=== PATIENT | female | born 1990 | race American Indian/Alaskan Native ===

== ENCOUNTER 2016-10-02 23:30 | Emergency (ER) | payer MEDICAID ==
[2016-10-03 00:39] LABS: Basophils % (Auto) 0.6 % (0.0-1.8); Eosinophils % (Auto) 1.7 % (0.0-4.3); Hematocrit 31.2 % (30.3-42.9); Mean Corpuscular HGB Conc 32 % (30-34); Mean Corpuscular Hemoglobin 23 pg (28-32); Mean Corpuscular Volume 72 fl (79-97); Platelet Count 285 K/mm3 (140-440); Red Blood Count 4.36 M/mm3 (3.65-5.03); Red Cell Distribution Width 19.1 % (13.2-15.2); White Blood Count 8.7 K/mm3 (4.5-11.0)
[2016-10-03 00:56] LABS: Blood Urea Nitrogen 4 mg/dL (7-17); Calcium 9.2 mg/dL (8.4-10.2); Carbon Dioxide 23 mmol/L (22-30); Glucose 95 mg/dL (65-100)
[2016-10-03 00:57] LABS: Anion Gap 18 mmol/L; Chloride 100.8 mmol/L (98-107); Potassium 3.6 mmol/L (3.6-5.0); Sodium 138 mmol/L (137-145)
[2016-10-03 02:29] LABS: Bilirubin,Urine NEG (Negative); Blood,Urine NEG (Negative); Ketones,Urine NEG (Negative); Leukocyte Esterase,Urine MOD (Negative); Mucus,Urine FEW /HPF; Nitrite,Urine NEG (Negative); Protein,Urine <15 mg/dL mg/dL (Negative); Urobilinogen,Urine < 2.0 mg/dL (<2.0)
[2016-10-03 04:36] VITALS: BP 120/79
--- NOTE | 2016-10-06 11:29 | ED Elopement Review ---
ED Pt Elopement review - Results review Lab results: Laboratory Tests 10/03/16 10/03/16 10/03/16 00:19 00:19 00:19 WBC 8.7 RBC 4.36 Hgb 10.0 L Hct 31.2 MCV 72 L MCH 23 L MCHC 32 RDW 19.1 H Plt Count 285 Lymph % (Auto) 27.7 [place] % (Auto) 9.6 H Eos % (Auto) 1.7 Baso % (Auto) 0.6 Lymph # 2.4 [place] # 0.8 Eos # 0.1 Baso # 0.1 Seg Neutrophils % 60.4 Seg Neutrophils # 5.3 Sodium 138 Potassium 3.6 Chloride 100.8 Carbon Dioxide 23 Anion Gap 18 BUN 4 L Creatinine 0.5 L Estimated GFR > 60 BUN/Creatinine Ratio 8.00 Glucose 95 Calcium 9.2 Troponin T < 0.010 HCG, Quant 6860 H Urine Color Urine Turbidity Urine pH Ur Specific [place] Urine Protein Urine Glucose (UA) Urine Ketones Urine Blood Urine Nitrite Urine Bilirubin Urine Urobilinogen Ur Leukocyte Esterase Urine WBC (Auto) Urine RBC (Auto) U Epithel Cells (Auto) Calcium Oxalate Crystal Urine Mucus 10/03/16 00:36 WBC RBC Hgb Hct MCV MCH MCHC RDW Plt Count Lymph % (Auto) [place] % (Auto) Eos % (Auto) Baso % (Auto) Lymph # [place] # Eos # Baso # Seg Neutrophils % Seg Neutrophils # Sodium Potassium Chloride Carbon Dioxide Anion Gap BUN Creatinine Estimated GFR BUN/Creatinine Ratio Glucose Calcium Troponin T HCG, Quant Urine Color Yellow Urine Turbidity Slightly-cloudy Urine pH 6.0 Ur Specific [place] 1.015 Urine Protein <15 mg/dl Urine Glucose (UA) Neg Urine Ketones Neg Urine Blood Neg Urine Nitrite Neg Urine Bilirubin Neg Urine Urobilinogen < 2.0 Ur Leukocyte Esterase Mod Urine WBC (Auto) 2.0 Urine RBC (Auto) 3.0 U Epithel Cells (Auto) 13.0 Calcium Oxalate Crystal 2+ Urine Mucus Few - Call Back decision Pt Call Back Decision: No action required
== END 2016-10-03 03:35 | disposition left against medical advice (07) ==
LOC: ED 23:30
DX: O26.892 Other specified pregnancy related conditions, second trimester (principal); R42 Dizziness and giddiness; R07.9 Chest pain, unspecified; Z53.21 Procedure and treatment not carried out due to patient leaving prior to being seen by health care provider
CPT/HCPCS: 36415; 80048; 81001; 84484; 84702; 85025; 93005; 93010

== ENCOUNTER 2016-10-26 00:03 | Outpatient (CLI) | payer MEDICAID, OTHER ==
[2016-10-26 00:29] VITALS: BP 117/52
[2016-10-26] MEDS ORDERED: LACTATED RINGERS 1,000 ML IV ONE (00:41)
[2016-10-26] MEDS ORDERED: LACTATED RINGERS 500 ML IV ONE (00:42)
[2016-10-26 02:32] LABS: Bilirubin,Urine Negative (Negative); Blood,Urine Negative (Negative); Ketones,Urine Negative (Negative); Leukocyte Esterase,Urine Moderate (Negative); Nitrite,Urine Negative (Negative); Urobilinogen,Urine 0.2 mg/dL (<2.0)
== END 2016-10-26 02:45 | disposition home or self-care (01) ==
LOC: TRG 00:03
PROVIDERS: ATTEND Obstetrics & Gynecology
DX: O47.02 False labor before 37 completed weeks of gestation, second trimester (principal); Z3A.22 22 weeks gestation of pregnancy
CPT/HCPCS: 81001; 96360; 96361; J7120

== ENCOUNTER 2017-01-04 23:37 | Outpatient (CLI) | payer OTHER ==
[2017-01-05 00:07] VITALS: BP 133/80
[2017-01-05] MEDS ORDERED: LACTATED RINGERS 1,000 ML IV ONE (00:13)
[2017-01-05] MEDS ORDERED: BRETHINE SUB-Q ONE (00:37)
[2017-01-05 00:38] LABS: Bilirubin,Urine NEG (Negative); Blood,Urine NEG (Negative); Ketones,Urine NEG (Negative); Leukocyte Esterase,Urine NEG (Negative); Mucus,Urine FEW /HPF; Nitrite,Urine NEG (Negative); Urobilinogen,Urine < 2.0 mg/dL (<2.0)
[2017-01-05] MEDS ORDERED: BRETHINE SUB-Q SCH (02:00)
--- NOTE | 2017-01-05 08:01 | Event Note ---
Date: 01/05/17 26 year old female presented to L&D triage at 32 weeks, 3 days gestation complaining of contractions since yesterday. Patient stated contractions became more regular early this morning so she came in to make sure she wasn't in labor. Patient denied vaginal bleeding or leaking of fluid. She denied falls or abdominal trauma. Patient states baby moving well. Patient has a history of a late delivery (36 weeks) with a previous and she also has a history of one full term delivery. Patient had mild uterine contractions upon arrival. FFN, urinalysis were collected. IV hydration and Bre[place]ine SQ were given and contractions resolved. SVE closed and thick. FHR tracing reactive AGA. FFN was negative. Urinalysis showed no evidence of UTI. Patient was encouraged to drink more water, rest, and avoid IC. Patient was advised to follow up at OB office early this coming week. Discharge home order was given by Dr. León as patient as it was determined that patient was not in labor.
== END 2017-01-05 02:45 | disposition home or self-care (01) ==
LOC: TRG 23:37
PROVIDERS: ATTEND Obstetrics & Gynecology
DX: O62.9 Abnormality of forces of labor, unspecified (principal); O47.03 False labor before 37 completed weeks of gestation, third trimester; Z3A.32 32 weeks gestation of pregnancy
CPT/HCPCS: 36415; 59025; 81001; 82731; 96360; 96372; J3105; J7120

== ENCOUNTER 2017-02-10 11:55 | Outpatient (CLI) | payer OTHER ==
[2017-02-10 13:01] LABS: Hematocrit 29.1 % (30.3-42.9); Hemoglobin 8.9 gm/dl (10.1-14.3); Mean Corpuscular HGB Conc 31 % (30-34); Platelet Count 298 K/mm3 (140-440); Red Blood Count 4.17 M/mm3 (3.65-5.03); Red Cell Distribution Width 16.1 % (13.2-15.2); White Blood Count 10.4 K/mm3 (4.5-11.0)
[2017-02-10 13:03] LABS: Mean Corpuscular Hemoglobin 21 pg (28-32); Mean Corpuscular Volume 70 fl (79-97)
[2017-02-10 13:08] LABS: Bacteria,Urine 3+ /HPF (Negative); Bilirubin,Urine NEG (Negative); Blood,Urine NEG (Negative); Ketones,Urine NEG (Negative); Leukocyte Esterase,Urine NEG (Negative); Nitrite,Urine NEG (Negative); Protein,Urine <15 mg/dL mg/dL (Negative); Urobilinogen,Urine < 2.0 mg/dL (<2.0)
[2017-02-10 13:17] LABS: Alanine Aminotransferase 14 units/L (7-56); Albumin 3.3 g/dL (3.9-5); Albumin/Globulin Ratio 1.1 %; Alkaline Phosphatase 157 units/L (35-129); Anion Gap 19 mmol/L; BUN/Creatinine Ratio 8; Blood Urea Nitrogen 3 mg/dL (7-17); Calcium 8.3 mg/dL (8.4-10.2); Carbon Dioxide 19 mmol/L (22-30); Chloride 103.2 mmol/L (98-107); Glucose 81 mg/dL (65-100); Potassium 4.1 mmol/L (3.6-5.0); Sodium 137 mmol/L (137-145); Total Protein 6.2 g/dL (6.3-8.2)
[2017-02-10 13:30] VITALS: BP 117/63
--- NOTE | 2017-02-10 18:19 | Progress Note ---
Assessment and Plan A: at 37 weeks, 4 days gestation. False labor. Normal labs. P: Advised patient to follow up at [facility] tomorrow to recheck her BP. Advised pt. to rest at home in the interim. Advised pt. to perform daily movement counting. Advised patient of warning signs and signs of labor. Advised pt. to continue iron supplements. Pt. voiced understanding. Subjective - Subjective Date of service: 02/10/17 Principal diagnosis: at 37 weeks, 4 days gestation; contractions Interval history: 26 year old female presents to L&D triage at 37 weeks, 4 days gestation complaining of contractions and states she wants to know if she is in labor. Patient states contractions have been irregular. Patient denies leaking of fluid or vaginal bleeding. Patient reports active movement. Patient denies headache, swelling, abdominal pain, nausea or vomiting. Patient reports: movement normal, contractions, no loss of fluid, no vaginal bleeding Objective - Vital Signs Vital Signs: Vital Signs - 12hr 02/10/17 02/10/17 02/10/17 12:17 12:18 12:20 Temperature Pulse Rate 104 H 102 H 78 Respiratory Rate Blood Pressure 159/79 149/71 O2 Sat by Pulse 100 Oximetry 02/10/17 02/10/17 02/10/17 12:23 12:28 12:33 Temperature Pulse Rate 109 H 79 101 H Respiratory Rate Blood Pressure O2 Sat by Pulse 100 99 100 Oximetry 02/10/17 02/10/17 02/10/17 12:34 12:49 13:00 Temperature 98 F Pulse Rate 93 H 120 H Respiratory 16 Rate Blood Pressure 143/77 137/82 O2 Sat by Pulse Oximetry 02/10/17 02/10/17 02/10/17 13:03 13:17 13:32 Temperature Pulse Rate 90 86 85 Respiratory Rate Blood Pressure 127/61 117/59 117/63 O2 Sat by Pulse Oximetry - Exam Breasts: deferred Abdomen: Present: normal appearance, soft. Absent: distention, tenderness, guarding, rigidity Uterus: Present: normal, fundal height above umbilicus. Absent: bogginess, tenderness FHR: category 1 Uterine Contraction Monitor Mode: External Cervical Dilatation: 0 Cervical Effacement Percentage: 0 station: -3 Uterine Contraction Pattern: Irregular Uterine Contraction Intensity: Mild Extremities: normal - Labs Labs: Abnormal Labs 02/10/17 02/10/17 02/10/17 12:46 12:46 12:46 Hgb 8.9 L Hct 29.1 L MCV 70 L MCH 21 L RDW 16.1 H Carbon Dioxide 19 L BUN 3 L Creatinine 0.4 L Calcium 8.3 L Alkaline Phosphatase 157 H Total Protein 6.2 L Albumin 3.3 L U Epithel Cells (Auto) 23.0 H Laboratory Results - last 24 hr 02/10/17 02/10/17 02/10/17 12:46 12:46 12:46 WBC 10.4 RBC 4.17 Hgb 8.9 L Hct 29.1 L MCV 70 L MCH 21 L MCHC 31 RDW 16.1 H Plt Count 298 Sodium 137 Potassium 4.1 Chloride 103.2 Carbon Dioxide 19 L Anion Gap 19 BUN 3 L Creatinine 0.4 L Estimated GFR > 60 BUN/Creatinine Ratio 8 Glucose 81 Calcium 8.3 L Total Bilirubin 0.40 AST 27 ALT 14 Alkaline Phosphatase 157 H Total Protein 6.2 L Albumin 3.3 L Albumin/Globulin Ratio 1.1 Urine Color Yellow Urine Turbidity Clear Urine pH 7.0 Ur Specific [place] 1.012 Urine Protein <15 mg/dl Urine Glucose (UA) Neg Urine Ketones Neg Urine Blood Neg Urine Nitrite Neg Urine Bilirubin Neg Urine Urobilinogen < 2.0 Ur Leukocyte Esterase Neg Urine WBC (Auto) 3.0 Urine RBC (Auto) 2.0 U Epithel Cells (Auto) 23.0 H Urine Bacteria (Auto) 3+
== END 2017-02-10 14:00 | disposition home or self-care (01) ==
LOC: TRG 11:55
PROVIDERS: ATTEND Obstetrics & Gynecology
DX: O62.9 Abnormality of forces of labor, unspecified (principal); Z3A.37 37 weeks gestation of pregnancy
CPT/HCPCS: 36415; 59025; 80053; 81001; 85027

== ENCOUNTER 2018-07-29 10:41 | Emergency (ER) | payer OTHER ==
--- NOTE | 2018-07-29 11:15 | Emergency Department Report ---
ED Chest Pain HPI - General Chief Complaint: Chest Pain Stated Complaint: CHEST PAIN/COUGHING Time Seen by Provider: 07/29/18 11:03 Source: patient Mode of arrival: Ambulatory Limitations: No Limitations - History of Present Illness Initial Comments: Patient is a 28-year-old female presents to ED complaining of left sided chest pain this intermittent for a year but Worse yesterday. Patient states she wasn't doing anything when she felt the pain. Patient states the pain is localized to her chest that did not radiate anywhere else. Patient stated pain is intermittent, sharp in nature. MD Complaint: chest pain -: Gradual Pain Location: left chest Pain Radiation: none Severity: moderate Severity scale (0 -10): 7 Quality: aching - Related Data Home Medications Medication Instructions Recorded Confirmed Last Taken Ferrous Sulfate [Feosol] 325 mg PO TID 02/12/17 02/17/17 02/16/17 Vit-Fe Fumar-FA [ 1 tab PO QDAY 02/12/17 02/17/17 02/16/17 Vitamin] Valacyclovir HCl [valACYclovir] 1 tab PO QDAY 02/17/17 02/17/17 02/16/17 Previous Rx's Medication Instructions Recorded Last Taken Type Ibuprofen [Motrin] 800 mg PO Q8HR #30 tablet 07/29/18 Unknown Rx Allergies Allergy/AdvReac Type Severity Reaction Status Date / Time No Known Allergies Allergy Verified 05/03/14 13:13 Heart Score - HEART Score History: Slightly suspicious EKG: Normal Age: < 45 Risk factors: No known risk factors Troponin: < normal limit HEART Score: 0 ED Review of Systems ROS: Stated complaint: CHEST PAIN/COUGHING Other details as noted in HPI Comment: All other systems reviewed and negative ED Past Medical Hx - Past Medical History Previous Medical History?: Yes Hx Hypertension: Yes (PIH) Hx CVA: No Hx Heart Attack/AMI: No Hx Congestive Heart Failure: No Hx Diabetes: No Hx Deep Vein Thrombosis: No Hx Pulmonary Embolism: No Hx GERD: No Hx Liver Disease: No Hx Renal Disease: No Hx Sickle Cell Disease: No Hx Arthritis: No Hx Headaches / Migraines: No Hx Seizures: No Hx Kidney Stones: No Hx Psychiatric Treatment: No Hx Asthma: Yes (used inhaler 02/15/17) Hx COPD: No Hx Tuberculosis: No Hx Dementia: No Hx HIV: No - Surgical History Past Surgical History?: Yes Hx Coronary Stent: No Hx Open Heart Surgery: No Hx Pacemaker: No Hx Internal Defibrillator: No Hx Cholecystectomy: No Hx Appendectomy: No Hx Breast Surgery: No Additional Surgical History: d&c 2012 - Social History Smoking Status: Never Smoker Substance Use Type: None - Medications Home Medications: Home Medications Medication Instructions Recorded Confirmed Last Taken Type Ferrous Sulfate [Feosol] 325 mg PO TID 02/12/17 02/17/17 02/16/17 History Vit-Fe Fumar-FA [ 1 tab PO QDAY 02/12/17 02/17/17 02/16/17 History Vitamin] Valacyclovir HCl [valACYclovir] 1 tab PO QDAY 02/17/17 02/17/17 02/16/17 History Ibuprofen [Motrin] 800 mg PO Q8HR #30 tablet 07/29/18 Unknown Rx ED Physical Exam - General Limitations: No Limitations General appearance: alert, in no apparent distress - Head Head exam: Present: atraumatic, normocephalic - Eye Eye exam: Present: normal appearance - ENT ENT exam: Present: mucous membranes moist - Neck Neck exam: Present: normal inspection - Respiratory Respiratory exam: Present: normal lung sounds bilaterally. Absent: respiratory distress, wheezes, chest wall tenderness, accessory muscle use - Cardiovascular Cardiovascular Exam: Present: regular rate, normal rhythm. Absent: systolic murmur, diastolic murmur, rubs, gallop - GI/Abdominal GI/Abdominal exam: Present: soft, normal bowel sounds - Extremities Exam Extremities exam: Present: normal inspection - Back Exam Back exam: Present: normal inspection - Neurological Exam Neurological exam: Present: alert, oriented X3 - Psychiatric Psychiatric exam: Present: normal affect, normal mood - Skin Skin exam: Present: warm, dry, intact, normal color. Absent: rash ED Course Vital Signs 07/29/18 10:42 Temperature 98.6 F Pulse Rate 66 Respiratory 18 Rate Blood Pressure 115/72 O2 Sat by Pulse 100 Oximetry JANETT score - Janett Score Age > 65: (0) No Aspirin use within the Past 7 Days: (0) No 3 or more CAD Risk Factors: (0) No 2 or more Angina events in past 24 hrs: (0) No Known CAD with more than 50% Stenosis: (0) No Elevated Cardiac Markers: (0) No ST Deviation Greater than 0.5mm: (0) No JANETT Score: 0 ED Medical Decision Making - Lab Data Result diagrams: 07/29/18 11:18 07/29/18 11:18 - Radiology Data Radiology results: report reviewed, image reviewed Fluoro Time In Minutes: AP CHEST: HISTORY: chest pain AP view of the chest demonstrates a normal mediastinal and cardiac contour with clear lungs and normal bony and soft tissue structures. IMPRESSION: Unremarkable AP chest. Transcribed By: TTR Dictated By: JAMIE BENZ JR, MD Electronically Authenticated By: JAMIE BENZ JR, MD Signed Date/Time: 07/29/18 0199 - Medical Decision Making 28-year-old female presented with possible costochondritis Patient is acute distress. All lab within normal limits. Chest x-ray shows no acute findings. See report above Discussed findings with the patient. Discussed patient to follow up with primary care physician. Critical care attestation.: If time is entered above; I have spent that time in minutes in the direct care of this critically ill patient, excluding procedure time. ED Disposition Clinical Impression: Costochondral chest pain Disposition: DC-01 TO HOME OR SELFCARE Is pt being admited?: No Does the pt Need Aspirin: No Condition: Stable Instructions: Chest Pain (ED), Costochondritis (ED), Upper Respiratory Infection (ED) Additional Instructions: Make sure to follow up with the primary care physician as discussed. Take all your medications as you've been prescribed. If you have any worsening symptoms or develop new symptoms please return to ED immediately. Prescriptions: Ibuprofen [Motrin] 800 mg PO Q8HR #30 tablet Referrals: MARKELL QUAN MD [Primary Care Provider] - 3-5 Days Forms: Accompanied Note, Work/School Release Form(ED) Time of Disposition: 12:40
[2018-07-29 11:28] LABS: Basophils # (Auto) 0.1 K/mm3 (0.0-0.1); Eosinophils # (Auto) 0.2 K/mm3 (0.0-0.4); Eosinophils % (Auto) 2.9 % (0.0-4.3); Hemoglobin 10.3 gm/dl (10.1-14.3); Lymphocytes # (Auto) 1.7 K/mm3 (1.2-5.4); Lymphocytes % (Auto) 31.1 % (13.4-35.0); Mean Corpuscular HGB Conc 31 % (30-34); Mean Corpuscular Volume 73 fl (79-97); Monocytes # (Auto) 0.5 K/mm3 (0.0-0.8); Monocytes % (Auto) 9.1 % (0.0-7.3); Platelet Count 316 K/mm3 (140-440); Red Blood Count 4.52 M/mm3 (3.65-5.03); Red Cell Distribution Width 14.8 % (13.2-15.2)
[2018-07-29 11:51] LABS: BUN/Creatinine Ratio 8; Blood Urea Nitrogen 4 mg/dL (7-17); Calcium 8.7 mg/dL (8.4-10.2); Hemolysis Index 2
--- NOTE | 2018-07-29 12:20 | XRay Report ---
AP CHEST: HISTORY: chest pain AP view of the chest demonstrates a normal mediastinal and cardiac contour with clear lungs and normal bony and soft tissue structures. IMPRESSION: Unremarkable AP chest.
[2018-07-29 20:43] VITALS: BP 115/72
== END 2018-07-29 13:01 | disposition home or self-care (01) ==
LOC: ED 10:41
DX: M94.0 Chondrocostal junction syndrome [Tietze] (principal); I10 Essential (primary) hypertension; J45.909 Unspecified asthma, uncomplicated
CPT/HCPCS: 36415; 71045; 80048; 84484; 84703; 85025; 93005; 93010; 99284

== ENCOUNTER 2019-02-02 11:31 | Emergency (ER) | payer OTHER ==
[2019-02-02 11:37] VITALS: BP 146/84
--- NOTE | 2019-02-02 11:59 | Emergency Department Report ---
Blank Doc - Documentation Documentation: 28-year-old female that presents with RLQ pain. Denies any n/v. This initial assessment/diagnostic orders/clinical plan/treatment(s) is/are subject to change based on patient's health status, clinical progression and re- assessment by fellow clinical providers in the ED. Further treatment and workup at subsequent clinical providers discretion. Patient/guardians urged not to elope from the ED as their condition may be serious if not clinically assessed and managed. Initial orders include: 1- Patient sent to [facility] for further evaluation and treatment 2- labs 3- UA
[2019-02-02 12:45] LABS: Basophils % (Auto) 0.9 % (0.0-1.8); Eosinophils # (Auto) 0.2 K/mm3 (0.0-0.4); Eosinophils % (Auto) 3.7 % (0.0-4.3); Hematocrit 32.9 % (30.3-42.9); Hemoglobin 10.2 gm/dl (10.1-14.3); Lymphocytes # (Auto) 1.9 K/mm3 (1.2-5.4); Lymphocytes % (Auto) 37.3 % (13.4-35.0); Mean Corpuscular HGB Conc 31 % (30-34); Mean Corpuscular Volume 72 fl (79-97); Monocytes # (Auto) 0.5 K/mm3 (0.0-0.8); Monocytes % (Auto) 9.9 % (0.0-7.3); Platelet Count 313 K/mm3 (140-440); Red Blood Count 4.61 M/mm3 (3.65-5.03); Red Cell Distribution Width 17.2 % (13.2-15.2)
[2019-02-02 13:09] LABS: Bacteria,Urine 1+ /HPF (Negative); Bilirubin,Urine NEG (Negative); Blood,Urine NEG (Negative); Color,Urine Yellow (Yellow); Mucus,Urine FEW /HPF; Protein,Urine <15 mg/dL mg/dL (Negative); Urobilinogen,Urine < 2.0 mg/dL (<2.0)
[2019-02-02] MEDS ORDERED: TORADOL IM ONE (15:09)
[2019-02-02] MEDS ORDERED: ZOFRAN ODT PO ONE (15:09)
[2019-02-02 15:14] LABS: Alanine Aminotransferase 10 units/L (7-56); Albumin 4.5 g/dL (3.9-5); BUN/Creatinine Ratio 10; Blood Urea Nitrogen 6 mg/dL (7-17); Calcium 8.9 mg/dL (8.4-10.2); Hemolysis Index 0
--- NOTE | 2019-02-02 15:16 | Emergency Department Report ---
ED Abdominal Pain HPI - General Chief Complaint: Abdominal Pain Stated Complaint: CYST ON RT SIDE OVARY PAIN Time Seen by Provider: 02/02/19 11:57 Source: patient Mode of arrival: Ambulatory Limitations: No Limitations - History of Present Illness Initial Comments: This 28-year-old female presents to the ED complaining of abdominal pain that's been intermittent for the past year. Patient states she was seen by livestock [employer] and diagnosed with ovarian cysts. Patient states that pain is intermittently worse. She denies nausea vomiting diarrhea or fever. MD Complaint: abdominal pain - Related Data Home Medications Medication Instructions Recorded Confirmed Last Taken Ferrous Sulfate [Feosol] 325 mg PO TID 02/12/17 02/17/17 02/16/17 Vit-Fe Fumar-FA [ 1 tab PO QDAY 02/12/17 02/17/17 02/16/17 Vitamin] Valacyclovir HCl [valACYclovir] 1 tab PO QDAY 02/17/17 02/17/17 02/16/17 Previous Rx's Medication Instructions Recorded Last Taken Type Ibuprofen [Motrin] 800 mg PO Q8HR #30 tablet 07/29/18 Unknown Rx Naproxen [Naprosyn] 500 mg PO BID PRN #20 tablet 01/03/19 Unknown Rx Penicillin V Potassium 500 mg PO TID #30 tablet 01/03/19 Unknown Rx predniSONE [Deltasone] 20 mg PO DAILY #15 tablet 01/03/19 Unknown Rx traMADol [Ultram 50 MG tab] 50 mg PO Q6HR PRN #10 tablet 02/02/19 Unknown Rx Allergies Allergy/AdvReac Type Severity Reaction Status Date / Time No Known Allergies Allergy Verified 05/03/14 13:13 ED Review of Systems ROS: Stated complaint: CYST ON RT SIDE OVARY PAIN Other details as noted in HPI Comment: All other systems reviewed and negative ED Past Medical Hx - Past Medical History Previous Medical History?: Yes Hx Hypertension: No Hx CVA: No Hx Heart Attack/AMI: No Hx Congestive Heart Failure: No Hx Diabetes: No Hx Deep Vein Thrombosis: No Hx Pulmonary Embolism: No Hx GERD: No Hx Liver Disease: No Hx Renal Disease: No Hx Sickle Cell Disease: No Hx Arthritis: No Hx Headaches / Migraines: No Hx Seizures: No Hx Kidney Stones: No Hx Psychiatric Treatment: No Hx Asthma: Yes (used inhaler 11/03/17) Hx COPD: No Hx Tuberculosis: No Hx Dementia: No Hx HIV: No - Surgical History Past Surgical History?: Yes Hx Coronary Stent: No Hx Open Heart Surgery: No Hx Pacemaker: No Hx Internal Defibrillator: No Hx Cholecystectomy: No Hx Appendectomy: No Hx Breast Surgery: No Additional Surgical History: D and C - Social History Smoking Status: Never Smoker Substance Use Type: None - Medications Home Medications: Home Medications Medication Instructions Recorded Confirmed Last Taken Type Ferrous Sulfate [Feosol] 325 mg PO TID 02/12/17 02/17/17 02/16/17 History Vit-Fe Fumar-FA [ 1 tab PO QDAY 02/12/17 02/17/17 02/16/17 History Vitamin] Valacyclovir HCl [valACYclovir] 1 tab PO QDAY 02/17/17 02/17/17 02/16/17 History Ibuprofen [Motrin] 800 mg PO Q8HR #30 tablet 07/29/18 Unknown Rx Naproxen [Naprosyn] 500 mg PO BID PRN #20 tablet 01/03/19 Unknown Rx Penicillin V Potassium 500 mg PO TID #30 tablet 01/03/19 Unknown Rx predniSONE [Deltasone] 20 mg PO DAILY #15 tablet 01/03/19 Unknown Rx traMADol [Ultram 50 MG tab] 50 mg PO Q6HR PRN #10 tablet 02/02/19 Unknown Rx ED Physical Exam - General Limitations: No Limitations General appearance: alert, in no apparent distress - Head Head exam: Present: atraumatic, normocephalic - Eye Eye exam: Present: normal appearance - ENT ENT exam: Present: mucous membranes moist - Neck Neck exam: Present: normal inspection - Respiratory Respiratory exam: Present: normal lung sounds bilaterally. Absent: respiratory distress - Cardiovascular Cardiovascular Exam: Present: regular rate, normal rhythm. Absent: systolic murmur, diastolic murmur, rubs, gallop - GI/Abdominal GI/Abdominal exam: Present: soft, normal bowel sounds - Extremities Exam Extremities exam: Present: normal inspection - Back Exam Back exam: Present: normal inspection - Neurological Exam Neurological exam: Present: alert, oriented X3 - Psychiatric Psychiatric exam: Present: normal affect, normal mood - Skin Skin exam: Present: warm, dry, intact, normal color. 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 Patient's abdomen was nontender she received pain medication while in ED. Patient is in no acute distress vital signs are normal Critical care attestation.: If time is entered above; I have spent that time in minutes in the direct care of this critically ill patient, excluding procedure time. ED Disposition Clinical Impression: Pelvic pain Disposition: DC- TO HOME OR SELFCARE Is pt being admited?: No Does the pt Need Aspirin: No Condition: Stable Instructions: Abdominal Pain (ED) Additional Instructions: Make sure to follow up with the primary care physician as discussed. Take all your medications as you've been prescribed. If you have any worsening symptoms or develop new symptoms please return to ED i mmediately. Prescriptions: traMADol [Ultram 50 MG tab] 50 mg PO Q6HR PRN #10 tablet PRN Reason: Pain Referrals: PRIMARY CARE, [Primary Care Provider] - 3-[address] [facility] [Outside] - 3-5 Days [facility] [Outside] - 3-5 Days [facility] [Provider Group] - 3-5 Days Forms: Accompanied Note, Work/School Release Form(ED) Time of Disposition: 15:26
== END 2019-02-02 17:48 | disposition home or self-care (01) ==
LOC: ED 11:31
DX: R10.31 Right lower quadrant pain (principal); R10.2 Pelvic and perineal pain; J45.909 Unspecified asthma, uncomplicated
CPT/HCPCS: 36415; 80053; 81001; 83690; 84703; 85025; 99283; J1885; Q0162

== ENCOUNTER 2019-09-11 23:27 | Emergency (ER) | payer OTHER ==
--- NOTE | 2019-09-12 01:12 | Emergency Department Report ---
ED Lower Extremity HPI - General Chief Complaint: Extremity Injury, Lower Stated Complaint: LEFT ANKLE/LEG SWELLING Time Seen by Provider: 09/12/19 00:56 Source: patient Mode of arrival: Ambulatory Limitations: No Limitations - History of Present Illness Complaint: ankle injury -: Gradual, days(s) (3) Injury: Ankle: Left Type of Injury: unknown Place: home Severity: mild, moderate Improves With: nothing Worsens With: weight bearing, movement, palpation Associated Symptoms: swelling - Related Data Home Medications Medication Instructions Recorded Confirmed Last Taken Ferrous Sulfate [Feosol] 325 mg PO TID 02/12/17 02/17/17 02/16/17 Vit-Fe Fumar-FA [ 1 tab PO QDAY 02/12/17 02/17/17 02/16/17 Vitamin] Valacyclovir HCl [valACYclovir] 1 tab PO QDAY 02/17/17 02/17/17 02/16/17 Previous Rx's Medication Instructions Recorded Last Taken Type Ibuprofen [Motrin] 800 mg PO Q8HR #30 tablet 07/29/18 Unknown Rx Naproxen [Naprosyn] 500 mg PO BID PRN #20 tablet 01/03/19 Unknown Rx Penicillin V Potassium 500 mg PO TID #30 tablet 01/03/19 Unknown Rx predniSONE [Deltasone] 20 mg PO DAILY #15 tablet 01/03/19 Unknown Rx traMADoL [Ultram 50 MG tab] 50 mg PO Q6HR PRN #10 tablet 02/02/19 Unknown Rx Allergies Allergy/AdvReac Type Severity Reaction Status Date / Time No Known Allergies Allergy Verified 05/03/14 13:13 ED Review of Systems ROS: Stated complaint: LEFT ANKLE/LEG SWELLING Other details as noted in HPI Comment: All other systems reviewed and negative ED Past Medical Hx - Past Medical History Previous Medical History?: Yes Hx Hypertension: No Hx CVA: No Hx Heart Attack/AMI: No Hx Congestive Heart Failure: No Hx Diabetes: No Hx Deep Vein Thrombosis: No Hx Pulmonary Embolism: No Hx GERD: No Hx Liver Disease: No Hx Renal Disease: No Hx Sickle Cell Disease: No Hx Arthritis: No Hx Headaches / Migraines: No Hx Seizures: No Hx Kidney Stones: No Hx Psychiatric Treatment: No Hx Asthma: Yes (used inhaler 02/15/17) Hx COPD: No Hx Tuberculosis: No Hx Dementia: No Hx HIV: No - Surgical History Past Surgical History?: Yes Hx Coronary Stent: No Hx Open Heart Surgery: No Hx Pacemaker: No Hx Internal Defibrillator: No Hx Cholecystectomy: No Hx Appendectomy: No Hx Breast Surgery: No Additional Surgical History: D and C - Social History Smoking Status: Former Smoker Substance Use Type: None - Medications Home Medications: Home Medications Medication Instructions Recorded Confirmed Last Taken Type Ferrous Sulfate [Feosol] 325 mg PO TID 02/12/17 02/17/17 02/16/17 History Vit-Fe Fumar-FA [ 1 tab PO QDAY 02/12/17 02/17/17 02/16/17 History Vitamin] Valacyclovir HCl [valACYclovir] 1 tab PO QDAY 02/17/17 02/17/17 02/16/17 History Ibuprofen [Motrin] 800 mg PO Q8HR #30 tablet 07/29/18 Unknown Rx Naproxen [Naprosyn] 500 mg PO BID PRN #20 tablet 01/03/19 Unknown Rx Penicillin V Potassium 500 mg PO TID #30 tablet 01/03/19 Unknown Rx predniSONE [Deltasone] 20 mg PO DAILY #15 tablet 01/03/19 Unknown Rx traMADoL [Ultram 50 MG tab] 50 mg PO Q6HR PRN #10 tablet 02/02/19 Unknown Rx ED Physical Exam - General Limitations: No Limitations General appearance: alert, in no apparent distress - Head Head exam: Present: atraumatic, normocephalic - Eye Eye exam: Present: normal appearance - ENT ENT exam: Present: mucous membranes moist - Neck Neck exam: Present: normal inspection - Respiratory Respiratory exam: Present: normal lung sounds bilaterally. Absent: respiratory distress - Cardiovascular Cardiovascular Exam: Present: regular rate, normal rhythm. Absent: systolic murmur, diastolic murmur, rubs, gallop - GI/Abdominal GI/Abdominal exam: Present: soft, normal bowel sounds - Extremities Exam Extremities exam: Present: normal inspection, tenderness, normal capillary refill, joint swelling. Absent: pedal edema, calf tenderness - Expanded Lower Extremity Exam Left Ankle exam: Present: tenderness, swelling. Absent: laceration, ecchymosis, crepidus, dislocation Neuro vascular tendon exam: Present: no vascular compromise - Back Exam Back exam: Present: normal inspection - Neurological Exam Neurological exam: Present: alert, oriented X3 - Psychiatric Psychiatric exam: Present: normal affect, normal mood - Skin Skin exam: Present: warm, dry, intact, normal color. Absent: rash ED Course Vital Signs 09/11/19 23:32 Temperature 99.8 F H Pulse Rate 88 Respiratory 14 Rate Blood Pressure 133/73 O2 Sat by Pulse 99 Oximetry Critical care attestation.: If time is entered above; I have spent that time in minutes in the direct care of this critically ill patient, excluding procedure time. ED Disposition Clinical Impression: Ankle pain, left, Tarsal coalition of left foot Disposition: DC-01 TO HOME OR SELFCARE Is pt being admited?: No Does the pt Need Aspirin: No Condition: Stable Referrals: MARKELL QUAN MD [Primary Care Provider] - 3-5 Days
--- NOTE | 2019-09-12 01:44 | XRay Report ---
Right ankle 2 views INDICATION: Right ankle pain. IMPRESSION: Mild circumferential swelling of the ankle. No underlying fracture is identified. Severe talar beaking, raising the possibility for possible underlying tarsal coalition, chronic. Signer Name: Loyd Lambert MD Signed: 09/12/2019 1:40 AM Workstation Name: [id number]
[2019-09-12 02:41] VITALS: BP 111/86
== END 2019-09-12 02:42 | disposition home or self-care (01) ==
LOC: ED 23:27
DX: Q66.89 Other specified congenital deformities of feet (principal); M25.572 Pain in left ankle and joints of left foot; J45.909 Unspecified asthma, uncomplicated; Z79.899 Other long term (current) drug therapy; Z98.890 Other specified postprocedural states; Z87.891 Personal history of nicotine dependence
CPT/HCPCS: 99283

== ENCOUNTER 2020-03-21 18:34 | Outpatient (CLI) | payer OTHER ==
[2020-03-21 18:52] VITALS: BP 136/75
[2020-03-21] MEDS ORDERED: LACTATED RINGERS 500 ML IV ONE (18:53)
[2020-03-21] MEDS ORDERED: TERBUTALINE 1 MG/1 ML INJ IVP ONE (19:23)
[2020-03-21 21:50] LABS: Bilirubin,Urine NEG (Negative); Blood,Urine NEG (Negative); Color,Urine Yellow (Yellow); Mucus,Urine 1+ /HPF
== END 2020-03-21 22:20 | disposition home or self-care (01) ==
LOC: TRG 18:34 → APU 18:35 → TRG 22:20
PROVIDERS: ATTEND Obstetrics & Gynecology
DX: O42.913 Preterm premature rupture of membranes, unspecified as to length of time between rupture and onset of labor, third trimester (principal); O16.3 Unspecified maternal hypertension, third trimester; J45.909 Unspecified asthma, uncomplicated; Z3A.35 35 weeks gestation of pregnancy
CPT/HCPCS: 59025; 81001; 96374; J3105; J7120; 96360; 96372

== ENCOUNTER 2020-04-16 04:15 | Inpatient (IN) | payer BC, OTHER ==
[~2020-04-16 04:15] MED LIST: OXYTOCIN 10 UNIT/1 ML INJ IM ONE
[2020-04-16] MEDS ORDERED: MINERAL OIL 30 ML ORAL LIQD PO PRN (04:37)
[2020-04-16] MEDS ORDERED: LACTATED RINGERS 1,000 ML IV SCH (04:45)
[2020-04-16] MEDS ORDERED: OXYTOCIN DRIP 30 UNITS/500 ML BAG IV SCH (05:00)
[2020-04-16] MEDS ORDERED: MAGNESIUM HYDROXIDE (MOM) ORAL LIQD UDC PO PRN (05:40)
[2020-04-16] MEDS ORDERED: diphenhydrAMINE 25 MG CAP PO PRN (05:40)
[2020-04-16] MEDS ORDERED: PROMETHAZINE 25 MG TAB PO PRN (05:40)
[2020-04-16] MEDS ORDERED: ONDANSETRON 4 MG/2 ML INJ IV PRN (05:40)
[2020-04-16] MEDS ORDERED: LANOLIN/ZINC/DIMETHICONE (LANSINOH) 7 GM TP PRN (05:40)
[2020-04-16] MEDS ORDERED: PROMETHAZINE 25 MG RECT SUPP PR PRN (05:40)
[2020-04-16] MEDS ORDERED: WITCH HAZEL/ GLYCERIN PAD TP PRN (05:40)
[2020-04-16] MEDS: IBUPROFEN 600 MG TAB PO SCH ×3 (06:13→17:49)
[2020-04-16 08:41] LABS: Hematocrit 22.1 % (30.3-42.9); Hemoglobin 6.7 gm/dl (10.1-14.3); Mean Corpuscular HGB Conc 30 % (30-34); Platelet Count 290 K/mm3 (140-440); Red Blood Count 3.42 M/mm3 (3.65-5.03)
[2020-04-16 08:42] LABS: Mean Corpuscular Volume 65 fl (79-97); Red Cell Distribution Width 20.1 % (13.2-15.2)
--- NOTE | 2020-04-16 12:42 | History and Physical Report ---
History of Present Illness Date of examination: 04/16/20 Date of admission: 04/16/20 04:15 Chief complaint: Active labor History of present illness: 30-year-old -0-1-3 at 38+6 weeks who presents via EMS with a precipitous delivery in the transport vehicle. The patient states having spontaneous rupture membranes at home and subsequently went into labor rapidly. The patient delivered in the ambulance and the placenta delivered spontaneously when she was transported to labor and delivery. Past History Past Medical History: asthma Past Surgical History: no surgical history Social history: single - Obstetrical History Expected Date of Delivery: 04/24/20 Actual Gestation: 38 Week(s) 6 Day(s) : 5 Para: 3 Hx # Term Pregnancies: 3 Number of Pregnancies: 0 Spontaneous Abortions: 1 Induced : 0 Number of Living Children: 3 Medications and Allergies Allergies Allergy/AdvReac Type Severity Reaction Status Date / Time No Known Allergies Allergy Verified 05/03/14 13:13 Home Medications Medication Instructions Recorded Confirmed Last Taken Type Vit-Fe Fumar-FA [ 1 tab PO QDAY 03/21/20 04/16/20 03/20/20 History Vitamin] Active Meds: Active Medications Bisacodyl (Bisacodyl 10 Mg Rect Supp) 10 mg OK BID PRN PRN Reason: Constipation Diphenhydramine HCl (Diphenhydramine 25 Mg Cap) 25 mg PO Q6H PRN PRN Reason: Itching Oxytocin/Sodium Chloride (Pitocin/Ns 30 Unit/500ml) 30 units in 500 mls @ 2 mls/hr IV TITR EHSAN; Protocol Lactated Ringer's (Lactated Ringers) 1,000 mls @ 125 mls/hr IV DIRECT EHSAN Ibuprofen (Ibuprofen 600 Mg Tab) 600 mg PO Q6H EHSAN Last Admin: 04/16/20 06:13 Dose: 600 mg Documented by: Magnesium Hydroxide (Magnesium Hydroxide (Mom) Oral Liqd Udc) 30 ml PO HS PRN PRN Reason: Constipation Mineral Oil (Mineral Oil 30 Ml Oral Liqd) 30 ml PO QHS PRN PRN Reason: Constipation Multi-Ingredient Ointment (Lanolin/Zinc/Dimethicone (Lansinoh) 7 Gm) 1 applic TP PRN PRN PRN Reason: Sore Nipples Ondansetron HCl (Ondansetron 4 Mg/2 Ml Inj) 4 mg IV Q8H PRN PRN Reason: Nausea And Vomiting Promethazine HCl (Promethazine 25 Mg Rect Supp) 25 mg OK Q6H PRN PRN Reason: Nausea And Vomiting Promethazine HCl (Promethazine 25 Mg Tab) 25 mg PO Q6H PRN PRN Reason: Nausea And Vomiting Sodium Chloride (Sodium Chloride 0.9% 10 Ml Flush Syringe) 10 ml IV PRN PRN PRN Reason: LINE FLUSH Witch Milagros/Glycerin (Witch Milagros/ Glycerin Pad) 1 each TP PRN PRN PRN Reason: Hemorrhoid/cleansing/soothing Review of Systems All systems: negative Genitourinary: leakage of fluid, pelvic pain, contractions - Vital Signs Vital signs: Vital Signs Pulse BP 81 129/71 04/16/20 04:25 04/16/20 04:25 Temp Pulse Resp BP Pulse Ox 98.2 F 91 H 18 149/66 100 04/16/20 08:44 04/16/20 08:44 04/16/20 08:44 04/16/20 08:44 04/16/20 08:44 - Physical Exam Breasts: Positive: deferred Cardiovascular: Regular rate Lungs: Positive: Clear to auscultation Abdomen: Positive: normal appearance Results Result Diagrams: 04/16/20 08:20 Abnormal lab results 04/16/20 Range/Units 08:20 WBC 14.9 H (4.5-11.0) K/mm3 RBC 3.42 L (3.65-5.03) M/mm3 Hgb 6.7 L (10.1-14.3) gm/dl Hct 22.1 L (30.3-42.9) % MCV 65 L (79-97) fl MCH 20 L (28-32) pg RDW 20.1 H (13.2-15.2) % All other labs normal. Assessment and Plan - Patient Problems (1) Precipitous delivery Current Visit: Yes Status: Acute Plan to address problem: Admit to labor and delivery (2) Iron deficiency anemia secondary to blood loss (chronic) Current Visit: Yes Status: Acute
--- NOTE | 2020-04-16 12:44 | Procedure Note ---
OB Delivery Note - Delivery Date of Delivery: 04/16/20 Surgeon: SERVANDO MORATAYA Estimated blood loss: <100cc - Vaginal Delivery presentation: vertex Delivery position: OA Intrapartum events: precipitous labor- <3hr Route of delivery: Delivery placenta: spontaneous Delivery cord: 3 umbilical vessels Episiotomy: none Delivery laceration: none Anesthesia: none Delivery comments: The patient had a precipitous delivery of a liveborn male infant in the ambulance. The infant weighed 3.5 kg. The patient was transferred to the labor and delivery unit and had a subsequent spontaneous delivery of the placenta which was intact with a three-vessel cord. No lacerations were noted. - Infant A Gender: Male (Weight 3.5 kg)
[2020-04-16 20:05] LABS: Hemoglobin 5.3 gm/dl (10.1-14.3)
[2020-04-16 20:07] LABS: Hematocrit 17.8 % (30.3-42.9)
[2020-04-16] MEDS ORDERED: SODIUM CHLORIDE 0.9% 500 ML 500 ML IV NR (20:12)
[2020-04-17] MEDS: IBUPROFEN 600 MG TAB PO SCH ×3 (00:16→11:40)
[2020-04-17 10:01] LABS: Hematocrit 21.9 % (30.3-42.9); Hemoglobin 6.8 gm/dl (10.1-14.3)
--- NOTE | 2020-04-17 12:38 | Progress Note ---
Assessment and Plan - Patient Problems (1) Precipitous delivery Current Visit: Yes Status: Acute Plan to address problem: Patient doing well Discharge home (2) Iron deficiency anemia secondary to blood loss (chronic) Current Visit: Yes Status: Acute Subjective - Subjective Date of service: 04/17/20 Interval history: Patient is without any complaints. She is tolerating regular diet and her pain is well controlled. Patient reports: appetite normal, voiding normally, pain well controlled : doing well Objective - Vital Signs Latest vital signs: Vital Signs Temp Pulse Resp BP BP Pulse Ox 04/17/20 08:45 98.7 F 83 18 141/74 97 04/17/20 05:38 20 04/17/20 01:11 98.5 F 70 18 128/72 100 04/17/20 00:41 98.2 F 74 18 134/72 100 04/17/20 00:16 20 04/17/20 00:11 98.4 F 71 20 138/82 100 04/16/20 23:41 98.1 F 70 20 133/78 100 04/16/20 23:11 98.5 F 78 18 140/67 100 04/16/20 22:41 98.4 F 79 18 139/79 100 04/16/20 22:26 98.5 F 90 20 136/88 100 04/16/20 16:46 98.6 F 84 18 139/76 98 04/16/20 12:43 98.1 F 92 H 18 131/62 100 Intake and Output 04/16/20 04/17/20 04/17/20 22:59 06:59 14:59 Intake Total 0 250 Output Total 300 Balance -300 250 Intake: Blood Product 0 250 Cpda-1 Leuko Reduced 0 250 Unit [id number] Output: Urine 300 Void 300 Other: Total, Output Amount 300 # Voids Void 1 500 - Exam Uterus: Present: normal, firm - Labs Labs: Abnormal lab results 04/16/20 04/16/20 04/17/20 Range/Units 08:20 19:38 09:30 Hgb 5.3 L* 6.8 L (10.1-14.3) gm/dl Hct 17.8 L* 21.9 L (30.3-42.9) % Crossmatch See Detail
--- NOTE | 2020-04-17 12:40 | Discharge Summary ---
Providers - Providers Date of Admission: 04/16/20 04:15 Date of discharge: 04/17/20 Attending physician: SERVANDO MORATAYA Primary care physician: SERVANDO MORATAYA Hospitalization Reason for admission: active labor Delivery: complications: other (Anemia requiring transfusion of 1 unit packed red blood cells) Discharge diagnosis: IUP at term delivered Hospital course: The patient had a precipitous delivery in the ambulance. Her course was complicated by anemia with the patient received 1 unit of packed red blood cells and reported being asymptomatic. Condition at discharge: Good Disposition: DC-01 TO HOME OR SELFCARE - Discharge Diagnoses (1) Precipitous delivery Status: Acute (2) Iron deficiency anemia secondary to blood loss (chronic) Status: Acute Plan - Discharge Medications Prescriptions: Ferrous Sulfate [Feosol 325 MG tab] 325 mg PO BID #60 tablet Ibuprofen [Motrin] 800 mg PO Q8HR PRN #30 tablet PRN Reason: Pain , Severe (7-10) HYDROcodone/APAP 5-325 [Thayer 5/325] 1 each PO Q6HR PRN #15 tablet PRN Reason: Pain - Provider Discharge Summary Activity: no sex for 6 weeks, no heavy lifting 4 weeks, no strenuous exercise Diet: routine Instructions: routine Additional instructions: [] Smoking cessation referral if applicable(refer to patient education folder for contact #) [] Refer to [facility] Booklet Call your doctor immediately for: * Fever > 100.5 * Heavy vaginal bleeding ( >1 pad per hour) * Severe persistent headache * Shortness of breath * Reddened, hot, painful area to leg or breast * Schedule visit in 4 weeks - Follow up plan
[2020-04-17 15:06] VITALS: BP 128/70
== END 2020-04-17 15:30 | disposition home or self-care (01) | DRG 775 ==
LOC: LD 04:15 → OB 09:13
PROVIDERS: ADMIT Obstetrics & Gynecology; ATTEND Obstetrics & Gynecology
PROC: 10E0XZZ Delivery of Products of Conception, External Approach (ICD-10-PCS; principal; 2020-04-16)
PROC: 30233N1 Transfusion of Nonautologous Red Blood Cells into Peripheral Vein, Percutaneous Approach (ICD-10-PCS; 2020-04-16)
DX: O90.81 Anemia of the puerperium (principal); D50.0 Iron deficiency anemia secondary to blood loss (chronic); Z20.822 Contact with and (suspected) exposure to COVID-19; Z37.0 Single live birth
CPT/HCPCS: 36415; 85014; 85018; 85027; 86592; 86706; 86762; 86850; 86900; 86901; 86920; 87350; 87806; 96360; G0378; J2590; J7040; P9016; U0003